=== PATIENT | female | born 1975 ===

== ENCOUNTER 2020-06-28 15:22 | Outpatient (CLI) | payer OTHER ==
--- NOTE | 2020-07-02 13:48 | Mammography Report ---
BILATERAL DIGITAL SCREENING MAMMOGRAM 3D/2D: 06/28/2020 CLINICAL: Routine screening. Comparison is made to exams dated: 05/05/2019 mammogram, 03/21/2018 mammogram, and 12/27/2015 mammogram - [facility]. The tissue of both breasts is heterogeneously dense. This may lower the sensitivity of mammography. No significant masses, calcifications, or other findings are seen in either breast. There has been no significant interval change. IMPRESSION: NEGATIVE There is no mammographic evidence of malignancy. A 1 year screening mammogram is recommended. This exam was interpreted at Station ID: [id number]. NOTE: For mammograms, a report in lay terms will be sent to the patient. Approximately 15% of breast malignancies will not be visualized mammographically. In the management of a palpable breast mass, a negative mammogram must not discourage biopsy of a clinically suspicious lesion. Electronically Signed By: Jefe Brown M.D., jr/jose daniel:07/01/2020 14:12:50 ACR BI-RADS Category 1: Negative 3341F C -Heterogeneously dense 1 Mammogram [id number] 1 year screening B
== END 2020-06-28 15:23 | disposition home or self-care (01) ==
LOC: DI.N 15:22
DX: Z12.31 Encounter for screening mammogram for malignant neoplasm of breast (principal)
CPT/HCPCS: 77063; 77067

== ENCOUNTER 2023-02-02 17:30 | Outpatient (CLI) | payer OTHER | END 2023-02-02 23:59 | disposition home or self-care (01) | LOC: LAB.N 17:30 | PROVIDERS: ATTEND Nurse Practitioner | DX: R30.0 Dysuria (principal) | CPT/HCPCS: 87086; 87181 ==